=== PATIENT | female | born 1980 | race African-American/Black ===

== ENCOUNTER 2017-03-19 01:03 | Emergency (ER) | payer SELFPAY ==
[2017-03-19 01:21] VITALS: BP 126/79; PULSE 115; RESP 14; TEMP 99.1
[2017-03-19] MEDS ORDERED: SODIUM CHLORIDE 0.9% 1,000 ML IV STA (01:34)
--- NOTE | 2017-03-19 01:52 | ED ---
General Adult HPI - General Chief complaint: Overdose Stated complaint: Syncope Time Seen by Provider: 03/19/17 01:13 Source: patient, EMS, RN notes reviewed Mode of arrival: ambulatory - History of Present Illness Initial comments: patient is a 36-year-old female presents to the emergency room for evaluation. Patient states that she had one glass of [place] and took an Ambien to help her fall asleep. Patient states she was getting in a bath tub and her aunt called EMS on her. Patient states her aunt think she overdosed on her sleeping medication. Patient states that she only took one Ambien. Patient states she takes Ambien to help her sleep. patient denies suicidal or homicidal ideations. Patient states she had no intentions on trying to overdose. - Related Data Home Medications Medication Instructions Recorded Confirmed Cephalexin [Keflex] 500 mg PO Q8HR 01/17/16 01/17/16 Allergies Allergy/AdvReac Type Severity Reaction Status Date / Time No Known Allergies Allergy Verified 01/17/16 20:02 Review of Systems ROS Statement: Those systems with pertinent positive or pertinent negative responses have been documented in the HPI. ROS Other: All systems not noted in ROS Statement are negative. Past Medical History Past Medical History: Hypertension Additional Past Medical History / Comment(s): Hep C History of Any Multi-Drug Resistant Organisms: None Reported Additional Past Surgical History / Comment(s): cycst Past Anesthesia/Blood Transfusion Reactions: No Reported Reaction Past Psychological History: No Psychological Hx Reported Smoking Status: Current every day smoker Past Alcohol Use History: Occasional Past Drug Use History: None Reported General Exam - General Exam Comments Initial Comments: sitting in exam room, no acute distress. Limitations: no limitations General appearance: alert Head exam: Present: atraumatic, normocephalic, normal inspection Eye exam: Present: normal appearance ENT exam: Present: normal exam Neck exam: Present: normal inspection Respiratory exam: Present: normal lung sounds bilaterally. Absent: respiratory distress Cardiovascular Exam: Present: normal rhythm, tachycardia, normal heart sounds Extremities exam: Present: normal inspection Back exam: Present: normal inspection Neurological exam: Present: alert, oriented X3 Psychiatric exam: Present: normal affect, normal mood Skin exam: Present: warm, dry, intact, normal color. Absent: rash Course Vital Signs 03/19/17 01:08 Temperature 99.1 F Pulse Rate 115 H Respiratory 14 Rate Blood Pressure 126/79 O2 Sat by Pulse 97 Oximetry Medical Decision Making - Medical Decision Making patient is a 36-year-old female since emergency room for evaluation of possible overdose. Patient states that her aunt called EMS to get her because she thought she overdosed on Ambien. Patient states she had one glass in the [place] and took one Ambien. Patient states she had no intentions to overdose. Patient states she has no intention to end her life. Patient states "my aunt is crazy". patient states that she does not want stay here. Patient states that she does not want any workup. Patient states she wants to go home. Patient states her aunt's is here to pick her up. Patient's BAT was 0.0. Patient states she understands she is leaving AGAINST MEDICAL ADVICE. Disposition Clinical Impression: Accidental drug ingestion Disposition: Left Against Medical Advice Referrals: Nonstaff,Physician [Primary Care Provider] - 1-2 days
== END 2017-03-19 01:59 | disposition left against medical advice (07) ==
LOC: EC 01:03
DX: T42.6X1A Poisoning by other antiepileptic and sedative-hypnotic drugs, accidental (unintentional), initial encounter (principal); F17.200 Nicotine dependence, unspecified, uncomplicated; Z53.29 Procedure and treatment not carried out because of patient's decision for other reasons
CPT/HCPCS: 99284

== ENCOUNTER 2019-08-05 17:05 | Emergency (ER) | payer OTHER ==
[2019-08-05 17:28] VITALS: BP 151/85; PULSE 98; RESP 16; TEMP 98.5
== END 2019-08-05 18:20 | disposition home or self-care (01) ==
LOC: EC 17:05
DX: Z04.9 Encounter for examination and observation for unspecified reason (principal); Y99.0 Civilian activity done for income or pay
CPT/HCPCS: 99499